=== PATIENT | female | born 1935 | race Caucasian/White ===

== ENCOUNTER → 2020-12-17 09:54 | Outpatient (CLI) | payer MEDICARE, SELFPAY ==
--- NOTE | ~2020-12-17 | DEXA_ITS ---
Bone Density Report Name: Jacqui Pearl Age: 85 Sex: Female Ethnicity: White Date of : 1935 Indication: osteopenia; height loss; prior fracture; hysterectomy; postmenopausal Referring Provider: GISSEL, ARLETH Blum Study: Bone densitometry was performed. Exam Date: December 17, 2020 Accession number: [id number] Bone Density: Region BMD T-score Z-score Classification AP Spine (L1-L4) 0.985 -0.6 2.3 Normal Femoral Neck (Left) 0.683 -1.5 1.0 Osteopenia Total Hip (Left) 0.597 -2.8 -0.6 Osteoporosis Femoral Neck (Right) 0.655 -1.8 0.7 Osteopenia Total Hip (Right) 0.589 -2.9 -0.6 Osteoporosis Total Hip Mean 0.593 -2.9 -0.6 Osteoporosis World Health Organization criteria for BMD impression classify patients as: Normal (T-score at or above -1.0), Osteopenia (T-score between -1.0 and -2.5), or Osteoporosis (T-score at or below -2.5). 10-year Fracture Risk: FRAX not reported because: Some T-score for Spine Total or Hip Total or Femoral Neck at or below -2.5 Previous Exams: Region Exam Age BMD T-score BMD Change BMD Change Date g/cm2 vs Baseline vs Previous AP Spine(L1-L4) 12/17/2020 85 0.985 -0.6 -0.049 -0.032* 07/04/2018 83 1.017 -0.3 -0.017 -0.024* 03/20/2016 81 1.041 -0.1 0.006 0.081* 04/17/2010 75 0.960 -0.8 -0.074 -0.017 01/20/2007 71 0.977 -0.6 -0.057 0.016 11/09/2005 70 0.961 -0.8 -0.073 -0.056* 07/21/2004 69 1.018 -0.3 -0.016 -0.021 02/08/2004 68 1.038 -0.1 0.004 0.004 02/07/2003 67 1.034 -0.1 Total Hip(Left) 12/17/2020 85 0.597 -2.8 -0.350 -0.060* 07/04/2018 83 0.656 -2.3 -0.290 -0.075* 03/20/2016 81 0.731 -1.7 -0.215 -0.122* 04/17/2010 75 0.853 -0.7 -0.093 -0.025 01/20/2007 71 0.878 -0.5 -0.068 -0.139* 11/09/2005 70 1.017 0.6 0.071 -0.022 07/21/2004 69 1.039 0.8 0.093 0.084 02/08/2004 68 0.955 0.1 0.009 0.009 02/07/2003 67 0.946 0.0 Total Hip(Right) 12/17/2020 85 0.589 -2.9 -0.357 -0.076* 07/04/2018 83 0.664 -2.3 -0.281 -0.049* 03/20/2016 81 0.713 -1.9 -0.232 -0.122* 04/17/2010 75 0.835 -0.9 -0.110 -0.043 01/20/2007 71 0.878 -0.5 -0.067 -0.105* 11/09/2005 70 0.984 0.3 0.038 0.039* 07/21/2004 69 0.945 0.0 0.000 -0.011
== END ==
PROVIDERS: PCP Internal Medicine; Visit Provider Internal Medicine
DX: Z78.0 Asymptomatic menopausal state (principal); M85.89 Other specified disorders of bone density and structure, multiple sites; M81.0 Age-related osteoporosis without current pathological fracture
CPT/HCPCS: 77080

== ENCOUNTER 2021-01-13 12:12 | Observation (INO) | payer MEDICARE, SELFPAY ==
[2021-01-13] VITALS (17 sets, daily range): BP systolic 114–158; BP diastolic 51–97; PULSE 68–107; RESP 13–23; TEMP 36.3–36.8; O2SAT 91–100; BMI 31.8
--- NOTE | ~2021-01-13 | CT_ITS ---
EXAMINATION: CT pelvis wo con DATE: 01/13/2021 14:58 INDICATION: Possible left hip fracture with left hip pain post fall TECHNIQUE: High resolution computed tomography (CT) of the pelvis was performed without intravenous c ontrast. Additional sagittal and coronal reconstructions were performed. Automated exposure control a nd iterative reconstruction technique were employed. The dose-length product was 412.49 mGy-cm. COMPARISON: Left hip radiographs dated 01/13/2021 FINDINGS: Comminuted fracture of the left superior pubic ramus extending to the pubic body. Additional oblique fracture at the central aspect of the left inferior pubic ramus. There is mild 5-10 mm posterior infe rior displacement of the medial side of the pubic ring relative to the lateral side of the pubic ring . There is a nondisplaced sagittally oriented fracture extending across the left sacral ala. No other fractures identified. Specifically no fracture of the proximal femurs or acetabula. Moderate osteoar thritis at the right hip and moderate to severe osteoarthritis at the left hip with marginal osteophy osvaldo about the acetabula and femoral heads, the latter accounting for the appearance suspicious for espinoza bcapital fracture on the prior radiographs. Mild right and mild to moderate left sacroiliac osteoarth ritis with vacuum phenomena at the inferior recess of both joint spaces. No hip joint effusion. There is extraperitoneal hematoma and surrounding edema at the anterior and left anterior side of the infe rior pelvis. There is also prominent edema and swelling of the musculature of the abductor compartmen t at the proximal left thigh without discrete hematoma. No hip joint effusions. No free intraperitone al fluid. Bladder appears normal. The uterus is not identified and has likely been surgically resecte d. Visualized portion of the bowels are unremarkable. Severe lower lumbar facet osteoarthritis with 6 mm anterolisthesis L5 on S1. IMPRESSION: 1. Mildly displaced fractures of the left superior and inferior pubic rami, the former comminuted and involving the pubic body. Prominent extraperitoneal hematoma at the anterior left anterolateral aspe ct of the inferior pelvis along side the fractures. 2. Nondisplaced sagittally oriented fracture at the left sacral ala. 3. Moderate right-sided and moderate severe left-sided hip osteoarthritis with no evident fractures. Reviewed, dictated and finalized at location A. IMPRESSION: 1. Mildly displaced fractures of the left superior and inferior pubic rami, the former comminuted and involving the pubic body. Prominent extraperitoneal jovana imelda at the anterior left anterolateral aspect of the inferior pelvis along hayden e the fractures. 2. Nondisplaced sagittally oriented fracture at the left sacral ala. 3. Moderate right-sided and moderate severe left-sided hip osteoarthritis with no evident fractures.
--- NOTE | ~2021-01-13 | XR_ITS ---
EXAMINATION: XR hip LT min 3V w AP pelvis EXAM DATE: 01/13/2021 13:52 INDICATION: Left hip pain, fracture. TECHNIQUE: Left hip frontal, crosstable lateral projections for interpretation. Frontal projection pe lvis. There is no prior study for comparison. FINDINGS: There are acute left superior and inferior rami fractures. Possible impacted left hip subca pital femoral neck fracture. Sacral arcuate lines appear but given the rami fractures, an occult sacr al fracture is possible. Recommend CT pelvis for further evaluation. IMPRESSION: 1. Acute left rami fractures. 2. Possible left hip subcapital femoral neck fracture. 3. Recommend CT pelvis without contrast. Reviewed, dictated and finalized at location B.
--- NOTE | ~2021-01-13 | CT_ITS ---
EXAMINATION: CT brain wo con EXAM DATE: 01/14/2021 13:57 INDICATION: Fell at home. Left rami, sacral ala fractures. TECHNIQUE: Spiral CT of the head was performed without contrast. Axial, coronal and sagittal images were reviewed. The dose-length product (DLP) for this examination was 605.33 mGy-cm. The exposure w as tailored according to patient size, and iterative reconstruction (ASIR) was used as additional dos e reduction technique. There is no prior study for comparison. FINDINGS: There is no acute intraparenchymal hemorrhage. No evidence of intraparenchymal brain mass lesion. No evidence of acute infarction. Please note that initial head CT has limited sensitivity f or small or acute infarctions. There is mild to moderate periventricular and subcortical hypodensity, nonspecific but probably related to small vessel ischemic disease. There is mild to moderate promi nence of the sulci and ventricles related to cerebral atrophy. There is intracranial carotid arteri osclerosis. There are no extra-axial collections. There is no mass effect or midline shift. The or bits are unremarkable. Soft tissue is unremarkable. The visualized sinuses and mastoid air cells ar e well aerated. IMPRESSION: 1. No acute intracranial findings. 2. Chronic age related findings. Reviewed, dictated and finalized at location B.
--- NOTE | 2021-01-13 15:05 | ED.FALL ---
HPI - Fall General Chief Complaint: Fall Stated Complaint: FELL, L HIP PAIN Time Seen by Provider: 01/13/21 14:22 History of Present Illness HPI Narrative: 85 yo female presents to the ED from home after a fall. She reports that she tripped and fell onto her left side. She has pain in the left hip. She has not been able to bear any weight since that time. Additionally she has stiffness in her shoulder. She denies hitting her head. No neck or back pain. Related Data Home Medications Medication Instructions Recorded Confirmed apixaban 5 mg tablet 5 mg PO BID 02/20/20 11/20/20 brinzolamide 1 % eye 1 drop EACH EYE TID 02/20/20 11/20/20 drops,suspension calcium carbonate 500 mg calcium 500 mg PO DAILY 02/20/20 11/20/20 (1,250 mg) capsule sertraline 50 mg tablet 50 mg PO DAILY 02/20/20 11/20/20 cholecalciferol (vitamin D3) 125 125 mcg PO DAILY 08/21/20 11/20/20 mcg (5,000 unit) capsule cyanocobalamin (vitamin B-12) 1,000 mcg PO DAILY 08/21/20 11/20/20 1,000 mcg capsule esomeprazole magnesium 40 mg 40 mg PO DAILY 08/21/20 11/20/20 capsule,delayed release ferrous sulfate 325 mg (65 mg 325 mg PO DAILY 08/21/20 11/20/20 iron) tablet polyethylene glycol 3350 17 17 g PO DAILY 08/21/20 11/20/20 gram/dose oral powder Allergies Allergy/AdvReac Type Severity Reaction Status Date / Time No Known Drug Allergies Allergy Mild no Verified 02/20/20 09:36 Review of Systems Review of Systems: All systems reviewed & are unremarkable except as noted in HPI and below Constitutional: Constitutional: Denies chills, Denies fever(s) and Denies weakness Eyes: Eyes: Reports no additional eye complaints Cardiovascular: Cardiovascular: Denies chest pain Respiratory: Respiratory: Denies dyspnea Gastrointestinal: Gastrointestinal: Denies abdominal pain, Denies nausea and Denies vomiting Genitourinary: Genitourinary: Reports no additional female genitourinary complaints Musculoskeletal: Musculoskeletal: Denies back pain Neurologic: Denies confusion, Denies dizziness, Denies numbness and Denies weakness [facility] Past Medical History Medical History Afib Age related osteoporosis Closed fracture of left proximal humerus 2018 Degenerative arthritis of knee, bilateral Left shoulder pain Surgical History Surgical History Fracture of left distal radius ORIF 2018 Family History Family History Mother Diabetes mellitus Father Cancer Social History Social History Smoking status: Never smoker Alcohol intake: never Gender identity (if verbalized by the patient): Female Exam Const: General: healthy appearing, no acute distress and alert Orientation/consciousness: patient oriented x3 HENMT: Head: normal to inspection Neck: Neck: normal visual inspection Resp: Effort & Inspection: normal respiratory effort Auscultation: clear to auscultation bilaterally, no rales, no rhonchi and no wheezes Cardio: Jugular venous distension: no JVD Rate: regular rate Rhythm: regular rhythm Heart sounds: no murmurs GI: Inspection: non-distended GI Palp: Yes Soft to palpation and No Tenderness to palpation present (GI) Back/Spine/Pelvis: Cervical Spine: No Cervical spine tenderness Thoracic/Lumbar Spine: No thoracic spinal tenderness and No lumbar spinal tenderness Skin: General skin exam: normal color Neuro: General: patient oriented x3 and moves all extremities Speech: normal speech Extrem: General: no edema Psych: Appearance: well kempt Affect: normal affect Course Vital Signs Vital signs: Vital Signs Temperature 36.8 C 01/13/21 12:12 Pulse Rate 78 01/13/21 12:12 Respiratory Rate 20 01/13/21 12:12 Blood Pressure 134/55 L 01/13/21 12:12 Pulse Oximetry 97 01/13/21 12
--- NOTE | 2021-01-13 18:19 | PCCCNOTE ---
Met with pt while she was in ED to discuss her discharge plan. Pt states she will need to see Dr. Aggarwal first to make a decision and then she will talk with her children. She has been to [facility] in the past for rehab and if needed she is agreeable to go back there.
--- NOTE | 2021-01-13 19:08 | PC.NURSE ---
Report received and care of pt assumed at this time.
--- NOTE | 2021-01-13 20:54 | PM.IMHP ---
H&P: HPI History of Present Illness Date/Time: 01/13/21 20:54Thiyola is a 85-year-old female patient who resides at home alone. The patient stated that she got up to get something and lost her balance she felt like she was going to fall forward so then she twisted to try to save herself and she fell on left side. She does not recall hitting her head have her which I did find a knot on the right side of her head. The patient is alert orientated to person place and time. She does not recall hitting her head though. However the patient is on Eliquis For her atrial fibrillation. The patient came into the emergency room today because she was having some left hip pain. The patient stated that she felt like she broke her hip . Her hip and pelvis x-ray was read as acute left rami fractures. Possible left hip subcapital femoral neck fracture. Recommend CT pelvis without contrast. CT of the pelvis was read as the following. Mildly displaced fractures of the left superior and inferior pubic rami, the former comminuted and involving the pubic body. Prominent extraperitoneal hematoma at the anterior left anterolateral aspect of the inferior pelvis along side the fractures. 2. Nondisplaced sagittally oriented fracture at the left sacral ala. 3. Moderate right-sided and moderate severe left-sided hip osteoarthritis with no evident fractures. orthopedic has been notified. The patient was given morphine for discomfort. The patient is being admitted for observation status on the date of service of 01/13/2021. Chief Complaint: fall Review of Systems Review of Systems: All systems reviewed & are unremarkable except as noted in HPI and below Constitutional: Constitutional: Reports as per HPI and Reports no additional constitutional complaints Eyes: Eyes: Reports as per HPI and Reports no additional eye complaints ENT: Reports system reviewed and no additional complaints, except as documented and Reports Normal hearing present Cardiovascular: Cardiovascular: Reports no additional cardiovascular complaints Respiratory: Respiratory: Reports no additional respiratory complaints and Reports no additional respiratory complaints Gastrointestinal: Gastrointestinal: Reports as per HPI and Reports no additional gastrointestinal complaints Musculoskeletal: Musculoskeletal: Reports no additional musculoskeletal complaints Integumentary/Breasts: Skin/Breast: Reports system reviewed and no additional complaints, except as docu and Reports as per HPI Neurologic: Reports system reviewed and no additional complaints, except as documented, Reports as per HPI and Reports Normal hearing present Psychiatric: Psychiatric: Reports no additional psychiatric complaints and Reports as per HPI Endocrine: Endocrine: Reports no additional endocrine complaints Hematologic/Lymphatic: Hematologic/Lymphatic: Reports no additional hematologic/lymphatic complaints Allergic/Immunologic: Allergic/Immunologic: Reports no additional allergic/immunologic complaints [facility] Past Medical History Medical History (Updated 01/13/21 @ 21:00 by Charlee Arenas NP) Afib On anticoagulation Age related osteoporosis Closed fracture of left proximal humerus 2018 Degenerative arthritis of knee, bilateral Depression with anxiety Left shoulder pain Surgical History Surgical History Fracture of left distal radius ORIF 2018 Family History Family History Mother Diabetes mellitus Father Cancer Social History Social History (Updated 01/13/21 @ 21:01 by Charlee Arenas NP) Social History: the patient lives home alone and she is . The patient has 2 children. She desires to be a full code. In her daughter is a durable power corporate associate attorney for healthcare. She has a son and a daughter. 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 The patient is a lifelong nonsmoker
[2021-01-13 22:06] LABS: Basophils Percent Auto 0.2 % (0.2-1.2); Eosinophils Percent Auto 0.3 % (0-4.4); Hematocrit 33.2 % (37.0-47.0); Hemoglobin 10.8 g/dL (12.0-15.0); Immature Granulocyte Absolute 0.05 K/mm3 (0.00-0.031); Immature Granulocyte Percent A 0.6 % (0-0.5); Lymphocytes Absolute Auto 0.86 K/mm3 (0.9-3.2); Lymphocytes Percent Auto 9.5 % (18.3-44.2); Mean Corpuscular HGB Conc 32.5 g/dl (32-36); Mean Corpuscular Hemoglobin 31.1 pg (26-34); Mean Corpuscular Volume 95.7 fl (80-100); Mean Platelet Volume 9.4 fl (7.4-10.4); Monocytes Absolute Auto 0.4 K/mm3 (0.1-0.6); Monocytes Percent Auto 4.5 % (2.6-8.5); Neutrophils Absolute Auto 7.7 K/mm3 (1.3-6.7); Neutrophils Percent Auto 84.9 % (45.5-73.1); Platelet Count Result 149 k/mm3 (150-375); Red Blood Count 3.47 M/mm3 (4.2-5.4); Red Cell Distribution Width 14.4 % (11.5-14.5)
[2021-01-13 22:19] LABS: Anion Gap 7 mmol/L (8-16); Blood Urea Nitrogen 19 mg/dL (7-17); Calcium 8.3 mg/dL (8.4-10.2); Carbon Dioxide 25 mmol/L (22-30); Chloride 103 mmol/L (98-107); Estimated Glomerular Filt Rate > 60; Glucose 159 mg/dL (65-110); Sodium 135 mmol/L (137-145)
[2021-01-14 04:53] VITALS: BP 132/52; PULSE 85; RESP 17; TEMP 36.6; O2SAT 96
[2021-01-14 05:53] LABS: Basophils Percent Auto 0.3 % (0.2-1.2); Eosinophils Absolute Auto 0.1 K/mm3 (0-0.3); Eosinophils Percent Auto 1.1 % (0-4.4); Hematocrit 32.1 % (37.0-47.0); Hemoglobin 10.6 g/dL (12.0-15.0); Immature Granulocyte Absolute 0.04 K/mm3 (0.00-0.031); Immature Granulocyte Percent A 0.5 % (0-0.5); Immature Platelet Fraction Pct 1.4 % (0.9-11.2); Lymphocytes Absolute Auto 1.37 K/mm3 (0.9-3.2); Lymphocytes Percent Auto 18.5 % (18.3-44.2); Mean Corpuscular Hemoglobin 31.5 pg (26-34); Mean Corpuscular Volume 95.3 fl (80-100); Mean Platelet Volume 9.6 fl (7.4-10.4); Monocytes Absolute Auto 0.5 K/mm3 (0.1-0.6); Monocytes Percent Auto 7.1 % (2.6-8.5); Neutrophils Absolute Auto 5.4 K/mm3 (1.3-6.7); Neutrophils Percent Auto 72.5 % (45.5-73.1); Platelet Count Result 148 k/mm3 (150-375); Red Blood Count 3.37 M/mm3 (4.2-5.4); Red Cell Distribution Width 14.3 % (11.5-14.5); White Blood Count 7.4 K/mm3 (4.5-10.0)
[2021-01-14 06:19] LABS: Alanine Aminotransferase 19 U/L (4-35); Albumin Level 3.4 g/dL (3.5-5.1); Alkaline Phosphatase 112 U/L (38-126); Anion Gap 5 mmol/L (8-16); Aspartate Amino Transferase 36 U/L (14-36); Bilirubin,Total 0.9 mg/dL (0.2-1.3); Blood Urea Nitrogen 17 mg/dL (7-17); Carbon Dioxide 24 mmol/L (22-30); Chloride 108 mmol/L (98-107); Estimated Glomerular Filt Rate > 60; Glucose 112 mg/dL (65-110); Potassium 3.9 mmol/L (3.4-5.0); Sodium 137 mmol/L (137-145)
--- NOTE | 2021-01-14 07:21 | PCOTNOTE ---
Will complete OT evaluation after ortho consult and WB order is completed. Will follow.
[2021-01-14] MEDS: CHOLECALCIFEROL 1,000 UNITS TABLET 5000 UNITS PO (08:54)
[2021-01-14] MEDS: BRIMONIDINE TARTRATE 0.2% OP SOLN 5 ML BTL 1 DROP RIGHT EYE ×3 (08:54→17:05)
[2021-01-14] MEDS: CALCIUM CARBONATE (OSCAL) 500 MG TABLET PO (08:55)
[2021-01-14] MEDS: APIXABAN 5 MG TABLET PO ×2 (08:55→17:05)
[2021-01-14] MEDS: FERROUS SULFATE 324 MG TABLET PO (08:55)
[2021-01-14] MEDS: PANTOPRAZOLE 40 MG TABLET PO (08:56)
[2021-01-14] MEDS: CYANOCOBALAMIN 1,000 MCG TABLET 1000 MCG PO (08:56)
[2021-01-14] MEDS: SERTRALINE HCL 50 MG TABLET PO (08:56)
[2021-01-14] MEDS: TIMOLOL MALEATE 0.5% OP SOLN 5 ML BOTTLE 1 DROP RIGHT EYE ×3 (08:57→17:05)
[2021-01-14] MEDS: BRINZOLAMIDE 1% OPHTH SUSP 10 ML 1 DROP EACH EYE ×3 (08:57→17:05)
[2021-01-14] MEDS: polyethylene glycoL 3350 17 GM POWD.PACK PO (09:19)
--- NOTE | 2021-01-14 11:14 | PM.CNOR ---
Assessment and Plan Assessment and plan (1) Closed pelvic fracture: Qualifiers: Encounter type: initial encounter Laterality: left Pelvic bone location: pubis Sublocation of pubis: unspecified portion of pubis Qualified Code(s): S32.502A - Unspecified fracture of left pubis, initial encounter for closed fracture <MARINO Ramos - Last Filed: 01/14/21 13:26> Code(s): S32.9XXA - Fracture of unspecified parts of lumbosacral spine and pelvis, initial encounter for closed fracture <MARINO Ramos - Last Filed: 01/14/21 13:26> Status: Acute <MARINO Ramos - Last Filed: 01/14/21 13:26> Assessment and Plan: 85 year old female with a displaced superior and inferior pubic rami fracture. She will be discharged to [facility] for PT/OT. She will follow up in the office in 1 month for repeat Xrays. She will take arthritis Tylenol 3x per day and Tramadol PRN for pain. <MARINO Ramos - Last Filed: 01/14/21 13:26> History of Present Illness HPI Consult date: 01/14/21 <MARINO Ramos - Last Filed: 01/14/21 13:26> 01/14/21 <Abdias Aggarwal MD - Last Filed: 01/14/21 14:44> Consult reason: fracture (left pelic inferior and superior rami) <MARINO Ramos - Last Filed: 01/14/21 13:26> Chief complaint: Pelvic Fractures <MARINO Ramos - Last Filed: 01/14/21 13:26> Narrative: 85 year old female admitted for left pelvic fracture after a fall at home on 01/13/21. She states she fell directly on her hip /buttock area. She has not been able to bear weight since the fall. Xray and CT of the pelvis shows minimally displaced fractures of the superior and inferior aspect of the pubic rami. <MARINO Ramos - Last Filed: 01/14/21 13:26> Review of Systems Review of Systems: All systems reviewed & are unremarkable except as noted in HPI and below <MARINO Ramos - Last Filed: 01/14/21 13:26> Constitutional: Constitutional: Reports as per HPI <MARINO Ramos - Last Filed: 01/14/21 13:26> Musculoskeletal: Musculoskeletal: Reports stiffness (left hip) <MARINO Ramos - Last Filed: 01/14/21 13:26> [facility] Past Medical History Medical History: Medical History Afib On anticoagulation Age related osteoporosis Closed fracture of left proximal humerus 2018 Degenerative arthritis of knee, bilateral Depression with anxiety Left shoulder pain <MARINO Ramos - Last Filed: 01/14/21 13:26> Surgical History Surgical History: Surgical History Fracture of left distal radius ORIF 2018 <MARINO Ramos - Last Filed: 01/14/21 13:26> Family History Family History: Family History Mother Diabetes mellitus Father Cancer <MARINO Ramos - Last Filed: 01/14/21 13:26> Social History Social History: Social History Social History: the patient lives home alone and she is . The patient has 2 children. She desires to be a full code. In her daughter is a durable power employee benefits attorney for healthcare. She has a son and a daughter. 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 The patient is a lifelong nonsmoker. She does not use any alcohol marijuana or illicit drugs. Smoking status: Never smoker Alcohol intake: never Substance use: never Gender identity (if verbalized by the patient): Female Spiritual care concerns: No <MARINO Ramos - Last Filed: 01/14/21 13:26> Meds Home Medications and Allergies Home medications: Home Medications Medication Instructions Recorded Confirmed Type apixaban 5 mg tablet 5 mg PO BID 02/20/20 01/13/21 History brinzolamide 1 % eye 1
[2021-01-14 14:00] VITALS: BP 117/52; PULSE 80; RESP 22; TEMP 35.6; O2SAT 95
[2021-01-14] MEDS: ACETAMINOPHEN 500 MG TABLET 1000 MG PO ×2 (14:09→21:35)
--- NOTE | 2021-01-14 15:08 | PM.IMPN ---
Progress Note: A&P Assessment and Plan (1) Closed pelvic fracture: Qualifiers: Encounter type: initial encounter Laterality: left Pelvic bone location: pubis Sublocation of pubis: unspecified portion of pubis Qualified Code(s): S32.502A - Unspecified fracture of left pubis, initial encounter for closed fracture Code(s): S32.9XXA - Fracture of unspecified parts of lumbosacral spine and pelvis, initial encounter for closed fracture Status: Acute Assessment and Plan: PT and OT have been consulted. Further recommendation per PT OT. submarine element coordinator consultation greatly be appreciated for placement. Continue with pain management. The patient prefers to see Dr. Aggarwal. 01/14/21 15:08 patient 85-year-old female lives alone at home got up in the night lost her balance and fell on the left side, patient denies hitting her head or loss of conscious, or any complaint of chest pain, palpitation or dizziness prior to fall, most likely patient lost her balance, patient presented emergency department patient had a CT scan of the pelvis and it showed 1. Mildly displaced fractures of the left superior and inferior pubic rami, the former comminuted and involving the pubic body. Prominent extraperitoneal hematoma at the anterior left anterolateral aspect of the inferior pelvis along side the fractures. 2. Nondisplaced sagittally oriented fracture at the left sacral ala. 3. Moderate right-sided and moderate severe left-sided hip osteoarthritis with no evident fractures. patient is seen by Ortho started does not recommend any surgical intervention rather conservative management with physical therapy and pain control, patient remains clinically stable will continue PT OT while in the heart and discharge the patient to rehab. (2) Afib: Code(s): I48.91 - Unspecified atrial fibrillation Status: Chronic Assessment and Plan: The patient has been on Eliquis. It I did find a nodule on her head although she stated she did not hit her head will get a CT scan of her brain. I am continue with Eliquis if that is negative. (3) Depression with anxiety: Code(s): F41.8 - Other specified anxiety disorders Status: Chronic Assessment and Plan: Continue home medication of sertraline Subjective Date/time seen: 01/14/21 15:08 patient 85-year-old female lives alone at home got up in the night lost her balance and fell on the left side, patient denies hitting her head or loss of conscious, or any complaint of chest pain, palpitation or dizziness prior to fall, most likely patient lost her balance, patient presented emergency department patient had a CT scan of the pelvis and it showed 1. Mildly displaced fractures of the left superior and inferior pubic rami, the former comminuted and involving the pubic body. Prominent extraperitoneal hematoma at the anterior left anterolateral aspect of the inferior pelvis along side the fractures. 2. Nondisplaced sagittally oriented fracture at the left sacral ala. 3. Moderate right-sided and moderate severe left-sided hip osteoarthritis with no evident fractures. patient is seen by Ortho started does not recommend any surgical intervention rather conservative management with physical therapy and pain control, patient remains clinically stable will continue PT OT while in the heart and discharge the patient to rehab. Review of Systems Review of Systems: All systems reviewed & are unremarkable except as noted in HPI and below Exam Narrative: elderly frail Patient is comfortable, NAD HEENT: eyes are clear and none icteric LUNGS: normal respiratory effort ABD: distended Lower extremities: no edema, bilateral lower extremity symmetrical there is no internal or external rotation. SKIN: nonjaundiced Neuro: grossly intact normal spleen. Objective Data Vital Signs Vital Signs: Vital Signs - 24 hr 01/13/21 15:34 01/13/21 15:45 01/13/21 15:57 Temperatur
[2021-01-14 19:49] VITALS: BP 133/66; PULSE 74; RESP 17; TEMP 36.2; O2SAT 98
[2021-01-14] MEDS: MORPHINE SULFATE (*CRX) 4 MG/ML INJ IV PUSH (21:44)
[2021-01-15 04:12] VITALS: BP 120/52; PULSE 80; RESP 17; TEMP 36.5; O2SAT 92
[2021-01-15] MEDS: ACETAMINOPHEN 500 MG TABLET 1000 MG PO (05:43)
[2021-01-15] MEDS: traMADol HCL (*CRX) 50 MG TABLET PO ×2 (05:45→13:20)
[2021-01-15] MEDS: FERROUS SULFATE 324 MG TABLET PO (07:58)
[2021-01-15] MEDS: PANTOPRAZOLE 40 MG TABLET PO (07:58)
[2021-01-15] MEDS: SERTRALINE HCL 50 MG TABLET PO (07:58)
[2021-01-15] MEDS: APIXABAN 5 MG TABLET PO (07:58)
[2021-01-15] MEDS: polyethylene glycoL 3350 17 GM POWD.PACK PO (07:58)
[2021-01-15] MEDS: CHOLECALCIFEROL 1,000 UNITS TABLET 5000 UNITS PO (07:58)
[2021-01-15] MEDS: BRIMONIDINE TARTRATE 0.2% OP SOLN 5 ML BTL 1 DROP RIGHT EYE ×2 (07:59→13:20)
[2021-01-15] MEDS: CYANOCOBALAMIN 1,000 MCG TABLET 1000 MCG PO (07:59)
[2021-01-15] MEDS: CALCIUM CARBONATE (OSCAL) 500 MG TABLET PO (07:59)
[2021-01-15] MEDS: BRINZOLAMIDE 1% OPHTH SUSP 10 ML 1 DROP EACH EYE ×2 (08:00→13:19)
[2021-01-15] MEDS: TIMOLOL MALEATE 0.5% OP SOLN 5 ML BOTTLE 1 DROP RIGHT EYE ×2 (08:00→13:19)
[2021-01-15 08:09] VITALS: BP 109/42; PULSE 70; RESP 18; TEMP 36.5; O2SAT 94
--- NOTE | 2021-01-15 11:58 | PM.DS ---
DS: Admitting Diagnosis Admitting Diagnosis Chief Complaint: fall DS: Discharge Diagnosis Discharge Diagnosis (1) Closed pelvic fracture: Qualifiers: Encounter type: initial encounter Laterality: left Pelvic bone location: pubis Sublocation of pubis: unspecified portion of pubis Qualified Code(s): S32.502A - Unspecified fracture of left pubis, initial encounter for closed fracture Code(s): S32.9XXA - Fracture of unspecified parts of lumbosacral spine and pelvis, initial encounter for closed fracture Status: Acute Assessment and Plan: PT and OT have been consulted. Further recommendation per PT OT. infection control coordinator consultation greatly be appreciated for placement. Continue with pain management. The patient prefers to see Dr. Aggarwal. 01/14/21 15:08 patient 85-year-old female lives alone at home got up in the night lost her balance and fell on the left side, patient denies hitting her head or loss of conscious, or any complaint of chest pain, palpitation or dizziness prior to fall, most likely patient lost her balance, patient presented emergency department patient had a CT scan of the pelvis and it showed 1. Mildly displaced fractures of the left superior and inferior pubic rami, the former comminuted and involving the pubic body. Prominent extraperitoneal hematoma at the anterior left anterolateral aspect of the inferior pelvis along side the fractures. 2. Nondisplaced sagittally oriented fracture at the left sacral ala. 3. Moderate right-sided and moderate severe left-sided hip osteoarthritis with no evident fractures. patient is seen by Ortho started does not recommend any surgical intervention rather conservative management with physical therapy and pain control, patient remains clinically stable will continue PT OT while in the heart and discharge the patient to rehab. (2) Afib: Code(s): I48.91 - Unspecified atrial fibrillation Status: Chronic Assessment and Plan: The patient has been on Eliquis. It I did find a nodule on her head although she stated she did not hit her head will get a CT scan of her brain. I am continue with Eliquis if that is negative. (3) Depression with anxiety: Code(s): F41.8 - Other specified anxiety disorders Status: Chronic Assessment and Plan: Continue home medication of sertraline DS: Summary Hospital Course Reason for hospitalization: This is a 85-year-old female patient who resides at home alone. The patient stated that she got up to get something and lost her balance she felt like she was going to fall forward so then she twisted to try to save herself and she fell on left side. She does not recall hitting her head have her which I did find a knot on the right side of her head. The patient is alert orientated to person place and time. She does not recall hitting her head though. However the patient is on Eliquis For her atrial fibrillation. The patient came into the emergency room today because she was having some left hip pain. The patient stated that she felt like she broke her hip . Her hip and pelvis x-ray was read as acute left rami fractures. Possible left hip subcapital femoral neck fracture. Recommend CT pelvis without contrast. CT of the pelvis was read as the following. Mildly displaced fractures of the left superior and inferior pubic rami, the former comminuted and involving the pubic body. Prominent extraperitoneal hematoma at the anterior left anterolateral aspect of the inferior pelvis along side the fractures. 2. Nondisplaced sagittally oriented fracture at the left sacral ala. 3. Moderate right-sided and moderate severe left-sided hip osteoarthritis with no evident fractures. orthopedic has been notified. The patient was given morphine for discomfort. The patient is being admitted for observation status on the date of service of 01/13/2021. Chief Complaint: fall Hospital Course: patient was discharge on
== END 2021-01-15 13:49 ==
LOC: ANHED 17:36 → ANH2MED 01-14 00:10
PROVIDERS: Nurse Practitioner; Admitting Provider Internal Medicine; Emergency Provider Emergency Medicine; PCP Internal Medicine; Visit Provider Family Medicine
DX: S32.592A Other specified fracture of left pubis, initial encounter for closed fracture (principal); S32.9XXA Fracture of unspecified parts of lumbosacral spine and pelvis, initial encounter for closed fracture; W19.XXXA Unspecified fall, initial encounter; M16.0 Bilateral primary osteoarthritis of hip; I48.91 Unspecified atrial fibrillation; M17.0 Bilateral primary osteoarthritis of knee; F41.8 Other specified anxiety disorders; Z79.01 Long term (current) use of anticoagulants
CPT/HCPCS: 36415; 70450; 72192; 73502; 80048; 80053; 83735; 84443; 85025; 85055; 96374; 96375; 97110; 97116; 97161; 97165; 97530; 97535; 99285; A9270; G0378; J0131; J2270

== ENCOUNTER → 2022-07-14 12:46 | Outpatient (CLI) | payer MEDICARE, SELFPAY ==
--- NOTE | ~2022-07-14 | MR_ITS ---
MRI of the left knee Clinical history: Pain Technique: Coronal proton density and proton density-weighted images, sagittal proton-density and T2 fat-sat images, and axial proton-density fat-saturated images were acquired. Findings: Anterior and posterior cruciate ligaments are intact. Medial collateral ligament and the la teral collateral ligament complex are intact. There is chronic increased signal at the proximal aspec t of the fibular collateral ligament. Popliteus tendon is intact. There is horizontal tear of the posterior horn of the medial meniscus. There is extensive complex tea ring throughout the lateral meniscus, with diminutive and irregular morphology. There is a depressed fracture of the lateral tibial plateau with maximal depression anteriorly up to approximately 5 mm. There is extensive marrow edema throughout the lateral tibial plateau region, andrei ecially posteriorly, with prominent irregularity at the posterolateral aspect of the lateral tibial p lateau articular surface. No extension of fracture to the lateral tibial cortex or to the medial tibi al plateau region. 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 There is diffuse mild cho ndral thinning of the medial lateral femoral condyles. There is mild chondral thinning of the patello femoral compartment. Lateral joint line osteophytes are present. Extensor mechanism is intact. Small joint effusion is present. Small Sahni cyst present. There is dif fuse subcutaneous soft tissue edema about the knee. Impression: Depressed lateral tibial plateau fracture, as detailed above. No extension to the lateral tibial markus ex. Underlying extensive complex tearing throughout the lateral meniscus. Horizontal tear of the posterior horn of the medial meniscus. Moderate osteoarthritic change of the lateral compartment, and mild osteoarthritic change of the medi al and patellofemoral compartments. Small joint effusion and small Sahni's cyst. Reviewed, dictated and finalized at location [facility] Impression: Depressed lateral tibial plateau fracture, as detailed above. No extension to t he lateral tibial cortex. Underlying extensive complex tearing throughout the lateral meniscus. Horizontal tear of the posterior horn of the medial meniscus. Moderate osteoarthritic change of the lateral compartment, and mild osteoarthri tic change of the medial and patellofemoral compartments. Small joint effusion and small Sahni's cyst.
--- NOTE | ~2022-07-14 | MR_ITS ---
MRI of the right tib-fib CLINICAL HISTORY: Pain TECHNIQUE: Axial T1-weighted, STIR, and T1 fat-sat images, sagittal T1-weighted and STIR images, and coronal T1-weighted and STIR images were performed. Following intravenous administration of 12 cc Mul tiHance gadolinium, T1-weighted fat-sat imaging was performed in the axial, coronal, and sagittal vini ferny. FINDINGS: No suspicious bone marrow signal abnormality seen. No fracture or evidence for osteomyeliti s. No periosteal reaction. No evidence of medial tibial stress syndrome. Probable mild degenerative changes at the left knee. Tibiotalar joint appears intact. No joint effusi on evident. Visualized musculature in the right lower extremity demonstrates normal signal intensity. No distinct muscle atrophy or edema. There is diffuse subcutaneous soft tissue edema, especially at the distal c half-way to ankle. No focal fluid collection evident. No abnormal postcontrast enhancement identified. IMPRESSION: Extensive subcutaneous soft tissue edema, especially the distal calf/ankle. Correlate for cellulitis or bland edema. Mild degenerative changes at the right knee, partially imaged. Reviewed, dictated and finalized at [facility]. [employer] DECORATOR IMPRESSION: Extensive subcutaneous soft tissue edema, especially the distal calf/ankle. Cor relate for cellulitis or bland edema. Mild degenerative changes at the right knee, partially imaged.
== END ==
PROVIDERS: PCP Internal Medicine; Visit Provider Nurse Practitioner
DX: R60.9 Edema, unspecified (principal); S82.142A Displaced bicondylar fracture of left tibia, initial encounter for closed fracture; S83.272A Complex tear of lateral meniscus, current injury, left knee, initial encounter; S83.242A Other tear of medial meniscus, current injury, left knee, initial encounter; M17.12 Unilateral primary osteoarthritis, left knee; M25.462 Effusion, left knee; M71.22 Synovial cyst of popliteal space [Baker], left knee; T14.90XA Injury, unspecified, initial encounter
CPT/HCPCS: 73720; 73721; A9577